=== PATIENT | female | born 1975 | race Caucasian/White ===

== ENCOUNTER 2024-05-12 05:42 | Emergency (ER) | payer SELFPAY ==
[~2024-05-12] VITALS: Ht 170.2 cm; Wt 65.8 kg
[2024-05-12] MEDS: IV NS 0.9% 1,000 ML BAG IV ONE (06:27)
[2024-05-12] MEDS ORDERED: ONDANSETRON HCL/PF 4 MG/2 ML VIAL ONE (06:28)
[2024-05-12] MEDS ORDERED: KETOROLAC TROMETHAMINE 15 MG/ML VIAL ONE (06:28)
[2024-05-12] MEDS ORDERED: CEFTRIAXONE 1GM BAG (ER ONLY) 50 ML IV ONE (06:28)
[2024-05-12] MEDS: ONDANSETRON HCL/PF 4 MG/2 ML VIAL IVP ONE (06:30)
[2024-05-12] MEDS: CEFTRIAXONE 1GM BAG (ER ONLY) 50 ML IV ONE (06:30)
[2024-05-12] MEDS: KETOROLAC TROMETHAMINE 15 MG/ML VIAL IV ONE (06:30)
[2024-05-12 06:34] LABS: APPEARANCE,URINE SLIGHTLY CLOUDY (CLEAR); BILIRUBIN,URINE NEGATIVE (NEGATIVE); BLOOD, URINE TRACE-INTA Ery/uL (NEGATIVE); COLOR,URINE YELLOW (YELLOW); KETONES,URINE NEGATIVE (NEGATIVE); LEUKOCYTE ESTERASE ,URINE 2+ (NEGATIVE); NITRITE, URINE NEGATIVE (NEGATIVE); PROTEIN,URINE NEGATIVE (NEGATIVE); UGLUCOSE NEGATIVE (NEGATIVE); UROBILINOGEN,URINE 0.2 EU/dL (0.2)
[2024-05-12 06:47] LABS: ADD URINE CULTURE YES; BACTERIA,URINE Few /HPF (None Seen); TRICHOMONAS,URINE Moderate /HPF (None Seen)
[2024-05-12 06:52] LABS: ALBUMIN 4.1 g/dL (3.4-5.0); BILIRUBIN,DIRECT 0.2 mg/dL (0.0-0.2); BILIRUBIN,TOTAL 0.7 mg/dL (0.2-1.0); CALCIUM, SERUM 8.9 mg/dL (8.5-10.1); CREATININE 0.9 mg/dL (0.6-1.3); POTASSIUM 3.7 mmol/L (3.5-5.1); TOTAL PROTEIN, SERUM 7.6 g/dL (6.4-8.2)
[2024-05-12 06:55] LABS: BASOPHILS # (AUTO) 0.1 K/uL (0.0-0.2); BASOPHILS % (AUTO) 0.6 % (0.0-2.0); EOSINOPHILS # (AUTO) 0.1 K/uL (0.0-0.7); EOSINOPHILS % (AUTO) 1.3 % (0.0-6.0); HEMATOCRIT 42 % (33-45); HEMOGLOBIN 14.4 g/dL (11.5-14.8); LACTIC ACID 0.9 mmol/L (0.4-2.0); LYMPHOCYTES # (AUTO) 2.9 K/uL (0.8-4.8); LYMPHOCYTES % (AUTO) 32.9 % (20.0-44.0); MEAN CORPUSCULAR HEMOGLOBIN 31 PG (26.0-33.0); MEAN CORPUSCULAR HGB CONC 34 g/dl (31.0-36.0); MEAN CORPUSCULAR VOLUME 90 fL (82-100); MONOCYTES # (AUTO) 0.7 K/uL (0.1-1.30); MONOCYTES % (AUTO) 7.5 % (2.0-12.0); NEUTROPHILS # (AUTO) 5.1 K/uL (1.8-8.9); NEUTROPHILS % (AUTO) 57.7 % (43.0-81.0); PLATELET COUNT (AUTO) 335 K/uL (150-450); RED CELL DISTRIBUTION WIDTH 14.1 % (11.5-15.0); WHITE BLOOD COUNT (AUTO) 8.9 K/uL (4.3-11.0)
[2024-05-12] MEDS ORDERED: ONDA4TAB5 PO (09:43)
[2024-05-12] MEDS ORDERED: METR500T PO (09:43)
[2024-05-12] MEDS ORDERED: DOXY100C2 PO (09:43)
[2024-05-12 09:58] VITALS: BP 117/81; TEMP 98.4; O2SAT 98
[2024-05-13 05:11] LABS: RAPID PLASMA REAGIN QUAL. Non Reactive (Non Reactive)
[2024-05-13 14:07] LABS: CHLAMYDIA TRACHOMATIS NAA Negative (Negative); NEISSERIA GONORRHOEAE NAA Negative (Negative)
== END 2024-05-12 09:58 | disposition home or self-care (01) ==
LOC: ER 05:49
DX: N39.0 Urinary tract infection, site not specified (principal); Z11.3 Encounter for screening for infections with a predominantly sexual mode of transmission; A59.9 Trichomoniasis, unspecified; R94.31 Abnormal electrocardiogram [ECG] [EKG]
CPT/HCPCS: 36415; 80048-TC; 80076-TC; 81001; 83605-TC; 83690-TC; 85025-TC; 86592; 86593; 87040-TC; 87086-TC; 87491; 87591; J0696; J1885; J2405; J7030